=== PATIENT | male | born 2000 | race African-American/Black ===

== ENCOUNTER 2023-04-10 07:40 | Emergency (ER) | payer BC, OTHER ==
[2023-04-10 07:51] VITALS: BP 137/86; PULSE 85; RESP 18; TEMP 98.3; BMI 23.1
[2023-04-10] MEDS ORDERED: CLINDAMYCIN 600MG PREMIX IVPB 600 MG/50 ML BAG IVPB ONE ×2 (09:02→09:06)
== END 2023-04-10 10:37 | disposition home or self-care (01) ==
LOC: JER 07:40 → JERFT 07:40
PROC: 0HQFXZZ Repair Right Hand Skin, External Approach (ICD-10-PCS; principal; 2023-04-10)
PROC: 3E03329 Introduction of Other Anti-infective into Peripheral Vein, Percutaneous Approach (ICD-10-PCS; 2023-04-10)
DX: S61.011A Laceration without foreign body of right thumb without damage to nail, initial encounter (principal); S66.801A Unspecified injury of other specified muscles, fascia and tendons at wrist and hand level, right hand, initial encounter; W26.8XXA Contact with other sharp object(s), not elsewhere classified, initial encounter; Y99.0 Civilian activity done for income or pay
CPT/HCPCS: 73130-TC-RT-FY; 99283-25